=== PATIENT | female | born 1985 | race African-American/Black ===

== ENCOUNTER 2017-08-26 17:28 | Emergency (ER) | payer SELFPAY ==
[2017-08-26] MEDS: LIDOCAINE 1% PF 2 ML VIAL. INJ (17:45)
== END 2017-08-26 18:00 | disposition home or self-care (01) ==
LOC: ER 17:28
DX: L05.01 Pilonidal cyst with abscess (principal); F14.10 Cocaine abuse, uncomplicated
CPT/HCPCS: 10080; 99284